=== PATIENT | female | born 1975 | race Caucasian/White ===

== ENCOUNTER 2021-02-06 20:40 | Emergency (ER) | payer BC ==
[2021-02-06 22:42] LABS: SARS-COV-2 RT PCR POSITIVE (NEGATIVE)
--- NOTE | 2021-02-06 22:49 | EDPHYS ---
Physician Documentation [facility] Name: Joana Diallo Age: 45 yrs Sex: Female : 1975 Arrival Date: 02/06/2021 Time: 20:50 Bed Waiting Private MD: ED Physician Roshan Briscoe HPI: 02/06 22:47 This 45 yrs old Female presents to ER via Ambulatory with complaints of jr8 Fever, Cough. 22:47 The patient reports fever, not measured (subjective). Onset: The symptoms/episode jr8 began/occurred gradually, 2 day(s) ago. Associated signs and symptoms: Pertinent positives: chills, cough. Severity of symptoms: At their worst the symptoms were mild in the emergency department the symptoms are unchanged. The patient has not experienced similar symptoms in the past. The patient has not recently seen a physician. This is a 45-year-old female that presented emergency room for cough, fevers, chills for the past 2 days. Has been had tested positive for Covid a couple days ago and then started present with symptoms about 48 hours ago. Wanted confirmation of test.. ROS: 22:47 Eyes: Negative for injury, pain, redness, and discharge, ENT: Negative for injury, jr8 pain, and discharge, Neck: Negative for injury, pain, and swelling, Cardiovascular: Negative for chest pain, palpitations, and edema, Abdomen/GI: Negative for abdominal pain, nausea, vomiting, diarrhea, and constipation, Back: Negative for injury and pain, MS/Extremity: Negative for injury and deformity, Skin: Negative for injury, rash, and discoloration, Neuro: Negative for headache, weakness, numbness, tingling, and seizure. 22:47 Constitutional: Positive for body aches, chills, fever. 22:47 Respiratory: Positive for cough, Negative for dyspnea on exertion, shortness of breath, sputum production, wheezing. Exam: 22:47 Constitutional: This is a well developed, well nourished patient who is awake, alert, jr8 and in no acute distress. Eyes: Pupils equal round and reactive to light, extra-ocular motions intact. Lids and lashes normal. Conjunctiva and sclera are non-icteric and not injected. Cornea within normal limits. Periorbital areas with no swelling, redness, or edema. ENT: Nares patent. No nasal discharge, no septal abnormalities noted. Tympanic membranes are normal and external auditory canals are clear. Oropharynx with no redness, swelling, or masses, exudates, or evidence of obstruction, uvula midline. Mucous membranes moist. Neck: Trachea midline, no thyromegaly or masses palpated, and no cervical lymphadenopathy. Supple, full range of motion without nuchal rigidity, or vertebral point tenderness. No Meningismus. Cardiovascular: Regular rate and rhythm with a normal S1 and S2. No gallops, murmurs, or rubs. Normal PMI, no JVD. No pulse deficits. Respiratory: Lungs have equal breath sounds bilaterally, clear to auscultation and percussion. No rales, rhonchi or wheezes noted. No increased work of breathing, no retractions or nasal flaring. Abdomen/GI: Soft, non-tender, with normal bowel sounds. No distension or tympany. No guarding or rebound. No evidence of tenderness throughout. Skin: Warm, dry with normal turgor. Normal color with no rashes, no lesions, and no evidence of cellulitis. MS/ Extremity: Pulses equal, no cyanosis. Neurovascular intact. Full, normal range of motion. Neuro: Awake and alert, GCS 15, oriented to person, place, time, and situation. Cranial nerves II-XII grossly intact. Motor strength 5/5 in all extremities. Sensory grossly intact. Cerebellar exam normal. Normal gait. Vital Signs: 21:25 BP 154 / 102; Pulse 90; Resp 18; Temp 99.1; Pulse Ox 100% on R/A; Weight 72.57 kg; wg Height 5 ft. 2 in. (157.48 cm); Pain 5/10; 22:37 BP 165 / 100; Pulse 76; Resp 18; Temp 98.0(O); Pulse Ox 100% on R/A; oe 21:25 Body Mass Index 29.26 (72.57 kg, 157.48 cm) wg MDM: 22:47 Data reviewed: vital signs, nurses notes, lab test result(s), and as a result, I will jr8 discharge patient. Data interpreted: Pulse oximetry: on room air is 100 %. Interpretation: normal. Counseling: I had a detailed discussion with the patient and/or guardian regarding: the historical points, exam findings, and any diagnostic results supporting the discharge/admit diagnosis, lab results, the need for outpatient follow up, a family practitioner, to return to the emergency department if symptoms worsen or persist or if there are any questions or concerns that arise at home. ED course: Patient hemodynamically stable. No increased work of breathing and is 100% on room air. Will discharge patient home with return precautions. Signs symptoms given to watch for for respiratory compromise. Otherwise to continue her [id number] vitamins and antipyretics.. 22:49 Patient medically screened. jr8 02/06 22:39 Order name: COVID-19 : Document "Date of Symptom Onset" if Symptomatic. bb 02/06 22:42 Order name: COVID-19/FLU A+B; Complete Time: 22:46 EDMS Administered Medications: No medications were administered Disposition: 02/07 01:26 Co-signature as Attending Physician, Roshan Briscoe MD I agree with the assessment and rn plan of care. Attestation: The patient's history, exam findings, diagnostics, and a summary of any interventions or procedures was reviewed in detail with García SMITH. Disposition Summary: 02/06/21 22:49 Discharge Ordered Location: Home jr8 Problem: new jr8 Symptoms: have improved jr8 Condition: Stable jr8 Diagnosis - SARS-associated coronavirus as the cause of diseases classified elsewhere jr8 Followup: jr8 - With: Private Physician - When: 2 - 3 days - Reason: Recheck today's complaints, Continuance of care, Re-evaluation by your physician Discharge Instructions: - Discharge Summary Sheet jr8 - COVID-19 jr8 Forms: - Medication Reconciliation Form jr8 - Thank You Letter jr8 - Work release form bb - Antibiotic Education jr8 - Prescription Opioid Use jr8 Prescriptions: - Ibuprofen 800 mg Oral Tablet - take 1 tablet by ORAL route every 12 hours As needed take with food; 20 tablet; jr8 Refills: 0, Product Selection Permitted Signatures: Dispatcher [employer] EDMS Roshan Briscoe MD MD rn Roszak, Josh, PA PA jr8
--- NOTE | 2021-02-06 22:49 | ER ---
Nurse's Notes [facility] Name: Joana Diallo Age: 45 yrs Sex: Female : 1975 Arrival Date: 02/06/2021 Time: 20:50 Bed Waiting Private MD: Diagnosis: SARS-associated coronavirus as the cause of diseases classified elsewhere Presentation: 02/06 21:25 Chief complaint: Patient states: Pt states she started having a fever today around 1300 wg and took 1200mg of motrin. Pt reports having a sore throat as well. Pt denies SOB, CP, N/V, dizziness, Abd pain. Coronavirus screen: Vaccine status: Patient reports being unvaccinated. Client denies travel out of the [place] in the last 14 days. Ebola Screen: Patient negative for fever greater than or equal to 101.5 degrees Fahrenheit, and additional compatible Ebola Virus Disease symptoms Patient denies exposure to infectious person. Patient denies travel to an Ebola-affected area in the 21 days before illness onset. No symptoms or risks identified at this time. Initial Sepsis Screen: Does the patient meet any 2 criteria? No. Patient's initial sepsis screen is negative. Does the patient have a suspected source of infection?. Risk Assessment: Do you want to hurt yourself or someone else? Patient reports no desire to harm self or others. Onset of symptoms was February 06, 2021 at 13:00. 21:25 Method Of Arrival: Ambulatory 21:25 Acuity: TOYA 4 wg Triage Assessment: 21:29 General: Appears in no apparent distress. comfortable, well groomed, well developed, wg Behavior is calm, cooperative, appropriate for age. Pain: Complains of pain in throat. EENT: Reports nasal congestion sore throat. Neuro: No deficits noted. Cardiovascular: No deficits noted. Respiratory: No deficits noted. GI: No deficits noted. : No deficits noted. Derm: No deficits noted. Musculoskeletal: No deficits noted. Screenin:51 Abuse screen: Denies threats or abuse. Nutritional screening: No deficits noted. bb Tuberculosis screening: No symptoms or risk factors identified. Fall Risk None identified. Assessment: 22:51 General: Appears in no apparent distress. Behavior is calm, cooperative. Neuro: Level bb of Consciousness is awake, alert, obeys commands, Oriented to person, place, time, situation. Cardiovascular: Capillary refill < 3 seconds Patient's skin is warm and dry. Respiratory: Respiratory effort is even, unlabored, Respiratory pattern is regular. Derm: Skin is pink, warm \T\ dry. Musculoskeletal: Circulation, motion, and sensation intact. Vital Signs: 21:25 BP 154 / 102; Pulse 90; Resp 18; Temp 99.1; Pulse Ox 100% on R/A; Weight 72.57 kg; wg Height 5 ft. 2 in. (157.48 cm); Pain 5/10; 22:37 BP 165 / 100; Pulse 76; Resp 18; Temp 98.0(O); Pulse Ox 100% on R/A; oe 21:25 Body Mass Index 29.26 (72.57 kg, 157.48 cm) wg ED Course: 20:50 Patient arrived in ED. bp1 21:29 Triage completed. wg 21:29 Arm band placed on left wrist. wg 22:46 García De Leon PA is PHCP. jr8 22:46 Roshan Briscoe MD is Attending Physician. jr8 22:51 Patient has correct armband on for positive identification. bb 22:51 No provider procedures requiring assistance completed. Patient did not have IV access bb during this emergency room visit. Administered Medications: No medications were administered Outcome: 22:49 Discharge ordered by . jr8 22:52 Discharged to home ambulatory. bb 22:52 Condition: stable 22:52 Discharge instructions given to patient, Instructed on discharge instructions, follow up and referral plans. Demonstrated understanding of instructions, follow-up care. 22:53 Prescriptions given X 1. bb 22:53 Patient left the ED. bb Signatures: Beatriz Neely RN RN bb García De Leon PA PA jr8 Dandy Andino oe Hansa Cooley Liam, RN wg
[2021-02-06 23:14] VITALS: O2SAT 100
[2021-02-06 23:15] VITALS: BP 165/100; TEMP 98
== END 2021-02-06 22:53 | disposition home or self-care (01) ==
LOC: ER 20:40
DX: U07.1 COVID-19 (principal)
CPT/HCPCS: 0240U; 99282